=== PATIENT | female | born 1950 | race Caucasian/White ===

== ENCOUNTER 2023-03-01 04:07 | Day surgery (SDC) | payer OTHER, BC ==
[2023-02-27 17:52] VITALS: BMI 16.5
[2023-03-01] MEDS ORDERED: BUPIVACAINE HCL/PF 0.5% (5MG/ML) 10 ML VIAL ONE ×2 (09:57→11:06)
[2023-03-01] MEDS ORDERED: BUPIVACAINE LIPOSOME/PF (EXPAREL) 266 MG/20 ML VIAL ONE (09:57)
[2023-03-01] MEDS ORDERED: MIDAZOLAM HCL 2 MG/2 ML SINGLE DOSE VIAL ONE (10:02)
[2023-03-01] MEDS ORDERED: LIDOCAINE HCL 1%, 10 MG/ML (10ML VIAL) MDV ONE (11:05)
[2023-03-01] MEDS ORDERED: ceFAZolin SODIUM 1 GM VIAL IVPB ONE (11:15)
[2023-03-01] MEDS ORDERED: PROPOFOL 20 ML ONE (12:20)
[2023-03-01] MEDS ORDERED: ceFAZolin SODIUM 1 GM VIAL ONE (13:00)
[2023-03-01] MEDS ORDERED: DEXAMETHASONE SOD PHOSPHATE 4 MG/1 ML VIAL ONE (13:00)
[2023-03-01] MEDS ORDERED: ONDANSETRON 4 MG/2 ML VIAL ONE (13:00)
[2023-03-01] MEDS ORDERED: LIDOCAINE HCL/PF 2% SDV 5ML VIAL ONE (13:00)
[2023-03-01] MEDS ORDERED: SEVOFLURANE 250 ML BTL ONE (13:00)
[2023-03-01] MEDS ORDERED: oxyCODONE HCL 5 MG TABLET PO PRN (13:47)
[2023-03-01] MEDS ORDERED: ONDANSETRON 4 MG/2 ML VIAL IVPUSH PRN (13:47)
[2023-03-01] MEDS ORDERED: LACTATED RINGERS SOLUTION 1,000 ML IV SCH (14:00)
[2023-03-01] MEDS ORDERED: LIDOCAINE HCL 1%, 10 MG/ML (20ML VIAL) INF ONE (14:18)
[2023-03-01] MEDS ORDERED: BUPIVACAINE HCL/PF 0.25% (2.5MG/ML) 10 ML VIAL IJ ONE (14:19)
[2023-03-01 22:24] VITALS: RESP 18
[2023-03-02 10:00] VITALS: BP 106/55; PULSE 91; TEMP 99.2
== END 2023-03-02 13:30 | disposition home or self-care (01) ==
LOC: JASUSAT 04:07 → JASU-SURG 04:07 → J5S 20:59 → JASUSAT 03-02 13:30
PROVIDERS: ATTEND Orthopaedic Surgery
PROC: 0RHJ04Z Insertion of Internal Fixation Device into Right Shoulder Joint, Open Approach (ICD-10-PCS; 2023-03-01)
PROC: 0LQ14ZZ Repair Right Shoulder Tendon, Percutaneous Endoscopic Approach (ICD-10-PCS; 2023-03-01)
PROC: 0PSJ04Z Reposition Left Radius with Internal Fixation Device, Open Approach (ICD-10-PCS; principal; 2023-03-01 11:24)
PROC: 0RRJ00Z Replacement of Right Shoulder Joint with Reverse Ball and Socket Synthetic Substitute, Open Approach (ICD-10-PCS; 2023-03-01 11:24)
PROC: 0LS30ZZ Reposition Right Upper Arm Tendon, Open Approach (ICD-10-PCS; 2023-03-01 11:24)
DX: S52.572A Other intraarticular fracture of lower end of left radius, initial encounter for closed fracture (principal); S42.211A Unspecified displaced fracture of surgical neck of right humerus, initial encounter for closed fracture; M75.101 Unspecified rotator cuff tear or rupture of right shoulder, not specified as traumatic; X58.XXXA Exposure to other specified factors, initial encounter; Y93.9 Activity, unspecified; Y92.9 Unspecified place or not applicable; Y99.9 Unspecified external cause status
CPT/HCPCS: 23472; 25608; 29827; C1713; 73030-TC-RT-FY; 76000-TC-FY; 86850; 86900; 86901; 94760; 97116-GP; 97162-GP; C1776; C1889